=== PATIENT | female | born 1970 | race Two or more races ===

== ENCOUNTER 2023-10-21 14:46 | Emergency (ER) | payer MEDICAID ==
[~2023-10-21] VITALS: Ht 149.9 cm; Wt 57.7 kg
[2023-10-21 14:54] VITALS: TEMP 98.1
[2023-10-21] MEDS: LIDOCAINE 5% TRANSDERMAL PATCH TD ONE (17:28)
[2023-10-21] MEDS: BACLOFEN 10 MG TABLET PO ONE (17:29)
[2023-10-21] MEDS: ACETAMINOPHEN 500 MG TABLET PO ONE (17:29)
[2023-10-21 17:33] LABS: BASOPHILS % (AUTO) 0.7 % (0.0-2.0); EOSINOPHILS % (AUTO) 5.1 % (1.0-6.0); HEMATOCRIT 40.8 % (36-46); HEMOGLOBIN 13.7 g/dL (12.0-16.0); LYMPHOCYTES # (AUTO) 2.8 K/uL (1.0-4.8); MEAN CORPUSCULAR HEMOGLOBIN 30.1 pg (26.0-34.0); MEAN CORPUSCULAR HGB CONC 33.6 G/dL (31.0-37.0); MEAN CORPUSCULAR VOLUME 90 fL (80-100); MONOCYTES # (AUTO) 0.6 K/uL (0.1-1.0); MONOCYTES % (AUTO) 9.7 % (2.0-9.0); NEUTROPHILS # (AUTO) 2.7 K/uL (1.8-7.7); NEUTROPHILS % (AUTO) 41.5 % (40.0-70.0); PLATELET COUNT (AUTO) 250 K/uL (150-450); RED BLOOD CELL COUNT(AUTO) 4.54 MIL/uL (4.00-5.20); RED CELL DISTRIBUTION WIDTH 12.8 % (11.5-14.5); WHITE BLOOD COUNT (AUTO) 6.5 K/uL (4.5-11.0)
[2023-10-21 17:41] LABS: ANION GAP 8 mmol/L (8-16); CALCIUM, TOTAL 8.8 mg/dL (8.8-10.5); CARBON DIOXIDE 31 mmol/L (22-29); CHLORIDE 102 mmol/L (98-107); CREATININE 0.77 mg/dL (0.60-1.30); GLOMERULAR FILTR. RATE CALC > 60 mL/min (>60); GLUCOSE,RANDOM 104 mg/dL (70-110); POTASSIUM 3.4 mmol/L (3.5-5.1); SODIUM SERUM 141 mmol/L (136-145); UREA NITROGEN, BLOOD 12 mg/dL (7-18)
[2023-10-21 18:43] LABS: APPEARANCE,URINE CLEAR (CLEAR); BILIRUBIN,URINE NEGATIVE (NEGATIVE); COLOR,URINE COLORLESS (YELLOW); GLUCOSE, URINE (UA) NEGATIVE (NEGATIVE); KETONES,URINE NEGATIVE (NEGATIVE); LEUKOCYTE ESTERASE ,URINE NEGATIVE (NEGATIVE); NITRATE,URINE NEGATIVE (NEGATIVE); OCCULT BLOOD,URINE NEGATIVE (NEGATIVE); PROTEIN,URINE NEGATIVE (NEGATIVE); SPECIFIC GRAVITIY, URINE 1.006 (1.003-1.030); UROBILINOGEN,URINE <=1.0 mg/dL (<=1.0)
[2023-10-21 19:16] LABS: BACTERIA,URINE None Seen /HPF (None Seen); RBC,URINE None Seen /HPF (0-2); WBC,URINE 0-2 /HPF (0-5)
[2023-10-21] MEDS ORDERED: BACL10TA PO (19:17)
[2023-10-21] MEDS ORDERED: ACET-3385 PO (19:18)
[2023-10-21 19:30] VITALS: BP 130/93; PULSE 61; RESP 14; O2SAT 99
== END 2023-10-21 19:44 | disposition home or self-care (01) ==
LOC: EMS 14:46
DX: M54.6 Pain in thoracic spine (principal); Z90.49 Acquired absence of other specified parts of digestive tract; Z98.51 Tubal ligation status; Z98.890 Other specified postprocedural states
CPT/HCPCS: 71046; 80048; 81001; 85025; 99284; 36415-L1; 36415-TC

== ENCOUNTER 2024-09-11 15:00 | Emergency (ER) | payer MEDICAID, OTHER ==
[~2024-09-11] VITALS: Ht 154.9 cm; Wt 63.6 kg
[~2024-09-11 15:00] MED LIST: ACET-3385 PO; BACL10TA PO
[2024-09-11 15:07] VITALS: TEMP 99.1
[2024-09-11 15:28] LABS: COVID AG,FIA SOURCE NASAL SWAB
[2024-09-11 16:03] LABS: INFLUENZA TYPE A NEGATIVE FOR TYPE A (NEGATIVE); INFLUENZA TYPE B NEGATIVE FOR TYPE B (NEGATIVE)
[2024-09-11 16:05] LABS: SARS-COV2 (COVID) ANTIGEN,FIA Positive (Negative)
[2024-09-11] MEDS ORDERED: POLY119P3 PO (16:45)
[2024-09-11] MEDS ORDERED: ACET-2080 PO (16:45)
[2024-09-11] MEDS ORDERED: GUAIFDM PO (16:45)
[2024-09-11] MEDS ORDERED: IBUP-1554 PO (16:45)
[2024-09-11] MEDS ORDERED: HYDR30CR3 TP (16:45)
[2024-09-11] MEDS ORDERED: ONDA-104 PO (16:45)
[2024-09-11 17:00] VITALS: BP 119/77; PULSE 97; RESP 18; O2SAT 98
[2024-09-11] MEDS: ONDANSETRON 4 MG TABLET PO ONE (17:15)
[2024-09-11] MEDS: ACETAMINOPHEN/CODEINE 300-30 MG TABLET PO ONE (17:15)
== END 2024-09-11 17:19 | disposition home or self-care (01) ==
LOC: EMS 15:02
DX: U07.1 COVID-19 (principal); J06.9 Acute upper respiratory infection, unspecified; Z98.51 Tubal ligation status; Z90.49 Acquired absence of other specified parts of digestive tract; Z98.890 Other specified postprocedural states; Z79.899 Other long term (current) drug therapy
CPT/HCPCS: 99283; 87426; 87804; Q0162